=== PATIENT | male | born 1955 | race Caucasian/White ===

== ENCOUNTER 2024-10-03 20:00 | Emergency (ER) | payer MEDICARE, SELFPAY ==
[2024-10-03 20:05] VITALS: BP 108/81
[2024-10-03 22:30] VITALS: BMI 27.8
[2024-10-03 22:31] VITALS: BP 132/76
--- NOTE | 2024-10-03 22:46 | ED.GENMED ---
History of Present Illness
General
Chief Complaint: Head Injury
Source: patient
Time Seen by Provider: 10/03/24 22:19
History of Present Illness
History of Present Illness:
69-year-old male presenting to the emergency department for evaluation after he was struck on the top of the head by a 2 x 6 piece of wood earlier this evening, initially felt lightheaded and now has a mild headache and some phonophobia. No LOC, no
vomiting, no anticoagulant medications. Patient is without any other injuries or concerns.
Past History
Past History
ED Past Medical History: Hypercholesterolemia
ED Past Surgical History: Other
Social History
Tobacco: Non-smoker
Alcohol: Occasional
Drug: None
Personal:
Living: with family
Review of Systems
Review of Systems
All Other Systems: ROS reviewed and negative except as documented in HPI and ROS
Phy Exam
Physical Exam
Physical Exam:
GENERAL: Alert , in no apparent distress
EYE: conjunctiva clear
Head: Normocephalic atraumatic
NECK: Supple,
ENT: mmm.
LUNGS: no acute respiratory distress
NEUROLOGICAL: Alert and oriented
SKIN: Warm and dry, skin intact.
MUSCULOSKELETAL: well perfused.
PSYCH: Normal and appropriate interaction.
Scores
Heart Failure Risk
Heart Failure Risk Score: Not Applicable
Heart Score for Chest Pain Patients
STEMI patient?: Not applicable
Withdrawal Assessment of Alcohol
Withdrawal Assessment Completed?: Not applicable
Course
Orders/Labs/Results
Orders:
Orders
10/03/24 20:09
CT Head W/o Iv Contrast Urgent
Comment:
Reason For Exam: hit head on wood
Vital Signs
Initial and Last Documented VS:
Initial Vital Signs
Temp Pulse Resp BP Pulse Ox
98.4 F 65 16 108/81 98
10/03/24 20:05 10/03/24 20:05 10/03/24 20:05 10/03/24 20:05 10/03/24 20:05
Last Documented Vital Signs
Temp Pulse Resp BP Pulse Ox
98.4 F 67 18 132/76 99
10/03/24 20:05 10/03/24 22:31 10/03/24 22:31 10/03/24 22:31 10/03/24 22:47
MDM/Problems Addressed
Differential Diagnosis Includes:
Contusion
Concussion,
intracranial bleeding
calvarial fracture
MDM/Problems Addressed:
69-year-old male presenting to the ER for evaluation following an accidental head injury earlier this evening, struck on the head by a large 2 x 6 piece of wood. No LOC or vomiting. CT of the head ordered but ultimately have lower suspicion for
significant intracranial pathology. Disposition pending.
*Radiology
Radiology exam reviewed: radiology read reviewed
*Pulse Oximetry
SaO2: 99
Oxygen Mode of Delivery: Room air
Patient hypoxic: no
*Critical Care Note
Total Time (30-74mins, 75-104mins- exclusive of procedures): Not Applicable
Patient Management
Escalation/DeEscalation of care consider admission/obs:
CT of the head is negative for any acute intracranial pathologies. At this time patient is stable for discharge home and outpatient follow-up as needed. Concussive symptoms and management discussed.
ED Attending Note
-
Portions of this chart may have been created with voice recognition software.� Occasional wrong word or��sound alike� substitutions may have occurred due to the inherent limitations of voice recognition software.
Discharge Plan
Departure
Patient Disposition: Home (Routine Discharge)
Date of Disposition: 10/03/24
Time of Disposition: 22:47
Patient with high blood pressure during this ER visit?: No
Discharge Problem:
Head injury
Instructions: Head Injury in Adults (DC)
Referrals:
UNKNOWN - PT DOES,NOT KNOW [Family Provider]
Interventions
Interventions:
*General Assessment Last Done: 10/03/24 22:19
*Neglect/Abuse Screening Last Done: 10/03/24 22:19
*ED- Fall Risk Assessment Last Done: 10/03/24 22:19
*ED COVID-19 Vaccine History Last Done: 10/03/24 22:19
*Nursing Disposition Last Done: 10/03/24 22:55
ED- Neurological Assessment Last Done: 10/03/24 22:19
ED-Skin Assessment Last Done: 10/03/24 22:19
Discharge Date and Time
Discharge Date/Time: 10/03/24 22:56
Print Language: KENYAN
== END 2024-10-03 22:56 | disposition home or self-care (01) ==
LOC: EMR 20:00
PROVIDERS: EMERGENCY PHYSICIAN Emergency Medicine
DX: S09.90XA Unspecified injury of head, initial encounter (principal); E78.00 Pure hypercholesterolemia, unspecified; W22.8XXA Striking against or struck by other objects, initial encounter
CPT/HCPCS: 99284; 70450